=== PATIENT | male | born 1960 | race African-American/Black ===

== ENCOUNTER 2022-03-15 08:32 | Day surgery (SDC) | payer OTHER ==
[~2022-03-15 08:32] MED LIST: Lactated Ringers 1,000 ML IV SCH
[2022-03-15] MEDS ORDERED: Propofol 200 MG/20 ML SDV ONE ×2 (10:48→10:59)
[2022-03-15] MEDS ORDERED: fentaNYL 100 MCG/2 ML SDV ONE (10:48)
== END 2022-03-15 12:31 | disposition home or self-care (01) ==
LOC: VM.SDS 08:32
PROVIDERS: ATTEND Surgery
DX: Z12.11 Encounter for screening for malignant neoplasm of colon (principal); I25.10 Atherosclerotic heart disease of native coronary artery without angina pectoris; Z79.899 Other long term (current) drug therapy
CPT/HCPCS: 00812; J2704; J3010; J7120

== ENCOUNTER 2023-01-10 06:50 | Emergency (ER) | payer OTHER ==
[2023-01-10] MEDS ORDERED: Sodium Chloride 0.9% 10 ML Syringe FLUSH PRN (06:54)
[2023-01-10] MEDS ORDERED: Lactated Ringers 1,000 ML IV ONE (06:55)
[2023-01-10] MEDS ORDERED: Pantoprazole 40 MG Vial IVPUSH ONE (07:07)
[2023-01-10 07:20] LABS: BASOPHILS PERCENT AUTO 0.6 % (0.2-1.2); EOSINOPHILS PERCENT AUTO 0.6 % (0.0-4.0); HEMATOCRIT 31.9 % (40.0-52.0); HEMOGLOBIN 11.1 g/dL (14.0-18.0); IMMATURE GRAN ABSOLUTE AUTO 0.03 x10^3/uL (0.00-0.07); LYMPHOCYTES ABSOLUTE AUTO 2.6 x10^3/uL (1.0-4.8); LYMPHOCYTES PERCENT AUTO 39.7 % (25.0-50.0); MEAN CORPUSCULAR HEMOGLOBIN 31.6 pg (26.0-32.0); MEAN CORPUSCULAR HGB CONC 34.8 g/dL (32.0-36.0); MEAN CORPUSCULAR VOLUME 90.9 fL (78.0-93.0); MONOCYTES ABSOLUTE AUTO 0.7 x10^3/uL (0.0-0.8); MONOCYTES PERCENT AUTO 10.8 % (2.0-11.0); NEUTROPHILS ABSOLUTE AUTO 3.2 x10^3/uL (1.8-7.7); NEUTROPHILS PERCENT AUTO 47.8 % (50.0-80.0); PLATELET COUNT,PLT 278 x10^3/uL (130-400); RED BLOOD CELL COUNT 3.51 x10^6/uL (4.5-6.0); WHITE BLOOD CELL COUNT,WBC 6.6 x10^3/uL (4.0-10.0)
[2023-01-10 07:31] LABS: INR 0.9 (0.9-1.1); PTT,PARTIAL THROMBOPLSTIN TIME 22.5 SEC (23.6-33.6)
[2023-01-10 07:37] LABS: A/G RATIO 1.13; ALANINE AMINOTRANSFERASE,ALT 21 U/L (16-63); ALBUMIN 3.6 g/dL (3.4-5.0); ALKALINE PHOSPHATASE 74 U/L (46-116); AMYLASE 81 U/L (25-115); ASPARTATE AMNIOTRANSFERASE,AST 14 U/L (15-37); BILIRUBIN TOTAL 0.2 mg/dL (0.2-1.0); BLOOD UREA NITROGEN,BUN 27 mg/dL (7-18); CALCIUM 8.9 mg/dL (8.5-10.1); CARBON DIOXIDE,CO2 26 mmol/L (21-32); CHLORIDE,CL 104 mmol/L (98-107); CREATININE 1.3 mg/dL (0.70-1.30); EST CRCL DRUG DOSING (CG) 70.95 mL/min; GLUCOSE RANDOM 139 mg/dL (70-99); LIPASE 36 U/L (19-71); MAGNESIUM 1.6 mg/dL (1.8-2.4); POTASSIUM,K 4.3 mmol/L (3.5-5.1); PROTEIN TOTAL,TP 6.8 g/dL (6.4-8.2); SODIUM,NA 138 mmol/L (136-145)
[2023-01-10 07:43] LABS: LACTIC ACID 1.7 mmol/L (0.4-2.0)
[2023-01-10 07:48] LABS: ANION GAP 12.3 mmol/L (5-15); C-REACTIVE PROTEIN < 0.50 mg/dL (<=0.50); ESTIMATED GFR 63 mL/min (>=60); ETHANOL BLOOD MEDICAL < 3 mg/dL (0-3)
[2023-01-10] MEDS ORDERED: Pantoprazole 40 MG in Sodium Chloride 0.9% 100 ML IV SCH (08:30)
== END 2023-01-10 10:13 | disposition short-term general hospital (02) ==
LOC: VM.ED 06:50
DX: K92.2 Gastrointestinal hemorrhage, unspecified (principal); Z72.0 Tobacco use
CPT/HCPCS: 80053; 80307; 82150; 83605; 83690; 83735; 85025; 85610; 85730; 86140; 96361; 96365; 96366; 96376; 99284; 99285; C9113; J3490; J7120